=== PATIENT | female | born 1975 | race American Indian/Alaskan Native ===

== ENCOUNTER 2016-07-23 09:56 | Emergency (ER) | payer SELFPAY ==
[2016-07-23 10:16] VITALS: BP 126/85
--- NOTE | 2016-07-23 10:56 | Emergency Department Report ---
Chief Complaint: Psych Stated Complaint: DEPRESSION Time Seen by Provider: 07/23/16 10:55 - HPI History of Present Illness: First language is [place] Citizen and she speaks a little [place]. brought patient to the hospital reported the patient is depressed and needs help. She said that patient is breaking glasses and disappearing for 6-7 hours without on the one who she is going. Patient denies that she wants to kill herself or kill anybody else. reports this started 3 months ago. Patient has 3 children the youngest is 8 years old. Had 2 major losses in 2016. She lost her mother and her father and her said that she was very close to both of them and this started after she lost appearance. reports the patient thinks a lot and is not her usual self. - ROS Review of Systems: all Systems are negative unless stated in HPI above. - Exam Vital Signs: Vital Signs 07/23/16 10:11 Temperature 98.4 F Pulse Rate 98 H Respiratory 18 Rate Blood Pressure 126/85 O2 Sat by Pulse 99 Oximetry Physical Exam: General: This is a 40-year-old female well-nourished well-developed in no acute distress. CV: S1, S2. Regular rate and rhythm. Lungs: Clear to auscultate bilaterally. No rhonchi wheezes or rales. PSYCH: Patient with flat affect. Suicidal or homicidal ideation. Denies hearing voices or seeing things. MSE screening note: Focused history and physical exam performed. Due to findings the following was ordered:See [facility] ED Medical Decision Making - Medical Decision Making Medical decision making: Patient seen by provider in triage area. Appropriate protocol activated and patient to main ED to be seen by physician. ED Disposition for MSE Condition: Stable
[2016-07-23 11:37] LABS: Basophils % (Auto) 0.6 % (0.0-1.8); Eosinophils % (Auto) 0.6 % (0.0-4.3); Hematocrit 36.6 % (30.3-42.9); Hemoglobin 11.9 gm/dl (10.1-14.3); Mean Corpuscular HGB Conc 33 % (30-34); Mean Corpuscular Volume 78 fl (79-97); Platelet Count 231 K/mm3 (140-440); Red Blood Count 4.67 M/mm3 (3.65-5.03); Red Cell Distribution Width 13.9 % (13.2-15.2)
[2016-07-23 11:41] LABS: Urine Drugs of Abuse Note Disclamer
[2016-07-23 11:45] LABS: Mean Corpuscular Hemoglobin 26 pg (28-32)
[2016-07-23 11:49] LABS: Anion Gap 19 mmol/L; Blood Urea Nitrogen 8 mg/dL (7-17); Carbon Dioxide 22 mmol/L (22-30); Chloride 101.7 mmol/L (98-107); Glucose 88 mg/dL (65-100); Potassium 3.9 mmol/L (3.6-5.0); Sodium 139 mmol/L (137-145)
[2016-07-23 12:12] LABS: Bilirubin,Urine NEG (Negative); Blood,Urine SM (Negative); Ketones,Urine NEG (Negative); Leukocyte Esterase,Urine MOD (Negative); Mucus,Urine 1+ /HPF; Nitrite,Urine NEG (Negative); Protein,Urine <15 mg/dL mg/dL (Negative); Urobilinogen,Urine < 2.0 mg/dL (<2.0)
--- NOTE | 2016-07-24 08:46 | ED Elopement Review ---
ED Pt Elopement review - Results review Lab results: Laboratory Tests 07/23/16 07/23/16 07/23/16 11:21 11:21 11:25 WBC RBC Hgb Hct MCV MCH MCHC RDW Plt Count Lymph % (Auto) [place] % (Auto) Eos % (Auto) Baso % (Auto) Lymph # [place] # Eos # Baso # Seg Neutrophils % Seg Neutrophils # Sodium 139 Potassium 3.9 Chloride 101.7 Carbon Dioxide 22 Anion Gap 19 BUN 8 Creatinine 0.5 L Estimated GFR > 60 BUN/Creatinine Ratio 16.00 Glucose 88 Calcium 9.0 Urine Color Yellow Urine Turbidity Clear Urine pH 5.0 Ur Specific [place] 1.018 Urine Protein <15 mg/dl Urine Glucose (UA) Neg Urine Ketones Neg Urine Blood Sm Urine Nitrite Neg Ur Reducing Substances Not Reportable Urine Bilirubin Neg Urine Ictotest Not Reportable Urine Urobilinogen < 2.0 Ur Leukocyte Esterase Mod Urine WBC (Auto) 7.0 H Urine RBC (Auto) 4.0 U Epithel Cells (Auto) 2.0 Urine Mucus 1+ Urine HCG, Qual Negative Urine Opiates Screen Presumptive negative Urine Methadone Screen Presumptive negative Ur Barbiturates Screen Presumptive negative Ur Phencyclidine Scrn Presumptive negative Ur Amphetamines Screen Presumptive negative U Benzodiazepines Scrn Presumptive negative Urine Cocaine Screen Presumptive negative U Marijuana (THC) Screen Presumptive negative Drugs of Abuse Note Disclamer Plasma/Serum Alcohol 07/23/16 07/23/16 11:25 11:25 WBC 5.0 RBC 4.67 Hgb 11.9 Hct 36.6 MCV 78 L MCH 26 L MCHC 33 RDW 13.9 Plt Count 231 Lymph % (Auto) 42.2 H [place] % (Auto) 7.7 H Eos % (Auto) 0.6 Baso % (Auto) 0.6 Lymph # 2.1 [place] # 0.4 Eos # 0.0 Baso # 0.0 Seg Neutrophils % 48.9 Seg Neutrophils # 2.5 Sodium Potassium Chloride Carbon Dioxide Anion Gap BUN Creatinine Estimated GFR BUN/Creatinine Ratio Glucose Calcium Urine Color Urine Turbidity Urine pH Ur Specific [place] Urine Protein Urine Glucose (UA) Urine Ketones Urine Blood Urine Nitrite Ur Reducing Substances Urine Bilirubin Urine Ictotest Urine Urobilinogen Ur Leukocyte Esterase Urine WBC (Auto) Urine RBC (Auto) U Epithel Cells (Auto) Urine Mucus Urine HCG, Qual Urine Opiates Screen Urine Methadone Screen Ur Barbiturates Screen Ur Phencyclidine Scrn Ur Amphetamines Screen U Benzodiazepines Scrn Urine Cocaine Screen U Marijuana (THC) Screen Drugs of Abuse Note Plasma/Serum Alcohol < 0.01 - Call Back decision Pt Call Back Decision: No action required
== END 2016-07-23 19:00 | disposition left against medical advice (07) ==
LOC: ED 09:56
DX: F32.9 Major depressive disorder, single episode, unspecified (principal); R45.851 Suicidal ideations; R45.850 Homicidal ideations; Z53.21 Procedure and treatment not carried out due to patient leaving prior to being seen by health care provider
CPT/HCPCS: 36415; 80048; 81001; 81025; 85025; G0479; G0480; 80307; 80320